=== PATIENT | male | born 1955 | race Caucasian/White ===

== ENCOUNTER → 2022-06-26 | Outpatient (CLI) | payer MEDICARE, BC, SELFPAY ==
[2022-06-26 11:26] LABS: Anion Gap 5 (5-15); BUN 25 mg/dL (7-18); BUN/Creat Ratio 27.9 RATIO (10-20); Chloride 110 mmol/L (98-107); Cholesterol 214 mg/dL (200); EST Glomerular Filtration Rate 90 mL/min (>60); Est Glom Filt Rate - Afr Amer 108 mL/min (>60); Glucose 91 mg/dL (74-106); High Density Lipoprotein 44 mg/dL; Potassium 4.2 mmol/L (3.5-5.1); Sodium Level 142 mmol/L (136-145); Triglycerides 93 mg/dL; Very Low Density Lipoprotein 19 mg/dL (5-40)
== END | disposition home or self-care (01) ==
LOC: PSN 11:47
PROVIDERS: Referring Provider Internal Medicine Cardiovascular Disease; Visit Provider Internal Medicine Cardiovascular Disease
DX: E78.5 Hyperlipidemia, unspecified (principal); I10 Essential (primary) hypertension; Z86.79 Personal history of other diseases of the circulatory system; R00.2 Palpitations
CPT/HCPCS: 36415; 80048; 80061; 84443; 93225; 93226

== ENCOUNTER → 2022-08-10 | Outpatient (CLI) | payer MEDICARE, BC, SELFPAY ==
--- NOTE | 2022-08-10 14:50 | ECHOD_ITS ---
Reason For Study: PALPS Procedure This was a 2D Doppler, Color Flow transthoracic echocardiogram. Definity deferred. Exam performed in department. Left Ventricle Normal LV size. Mild concentric left ventricular hypertrophy. The left ventricular ejection fraction is 65 %. Normal diastololic function. Right Ventricle Normal RV size. A moderator band is seen in the right ventricle. Atria The left atrium is mildly enlarged. Normal right atrium. Mitral Valve The mitral valve is structurally normal. No prolapse or stenosis seen. Tricuspid Valve Normal tricuspid valve. Aortic Valve Trivial aortic valve insufficiency. Pulmonic Valve The pulmonic valve is not well visualized. Pericardium/Pleural No pericardial effusion. MMode/2D Measurements & Calculations LVIDd: 5.0 cm IVSd: 1.1 cm Ao root diam: 3.3 cm LVIDs: 3.4 cm LVPWd: 1.5 cm FS: 31.2 % LAV(MOD-bp): 62.8 ml LVAd ap4: 32.9 cm2 SV(MOD-sp4): 62.9 ml LAV(MOD-bp) Indexed: 28.9 ml/m2 LVLd ap4: 7.6 cm LAV(MOD-sp2): 59.1 ml EDV(MOD-sp4): 113.1 ml LAV(MOD-sp4): 57.0 ml EDV(sp4-el): 120.7 ml LVAs ap4: 19.8 cm2 LVLs ap4: 6.6 cm ESV(MOD-sp4): 50.2 ml ESV(sp4-el): 50.4 ml EF(MOD-sp4): 55.6 % EF(sp4-el): 58.2 % SV(sp4-el): 70.3 ml LA dimension(2D): 4.4 cm LA A4 area: 20.3 cm2 RA A4 area: 15.9 cm2 Time Measurements MV dec time: 0.22 sec Doppler Measurements & Calculations MV E max chon: 53.7 cm/sec Lat Peak E' Chon: 8.9 cm/sec Med Peak E' Chon: 7.8 cm/sec MV A max chon: 54.2 cm/sec E/E' lat: 6.0 E/E' med: 6.9 MV E/A: 0.99 MV V2 max: 65.3 cm/sec Ao V2 max: 110.2 cm/sec MV max P.7 mmHg MV dec slope: 254.1 cm/sec2 Ao max P.9 mmHg MV V2 mean: 36.9 cm/sec Ao V2 mean: 77.1 cm/sec MV mean P.67 mmHg Ao mean P.8 mmHg MV V2 VTI: 25.0 cm Ao V2 VTI: 23.9 cm AV (velocity ratio): 0.91 LV V1 max: 100.1 cm/sec PA V2 max: 106.2 cm/sec LV V1 max P.0 mmHg PA V2 mean: 69.6 cm/sec LV V1 mean P.9 mmHg LV V1 mean: 63.9 cm/sec LV V1 VTI: 21.7 cm ECHO/Echo Complete Interpretation Summary Mild concentric left ventricular hypertrophy. The left ventricular ejection fraction is 65 %. The left atrium is mildly enlarged. Ordering Physician: Cherise Gomez Referring Physician: Cherise Gomez Performed By: Eliana Barnes RCS
== END | disposition home or self-care (01) ==
LOC: CVS 14:49
PROVIDERS: Referring Provider Internal Medicine Cardiovascular Disease; Visit Provider Internal Medicine Cardiovascular Disease
DX: R00.2 Palpitations (principal); Z86.79 Personal history of other diseases of the circulatory system
CPT/HCPCS: 93306

== ENCOUNTER → 2023-02-09 | Outpatient (CLI) | payer MEDICARE, BC, SELFPAY ==
[2023-02-09 11:06] LABS: AST(SGOT) 19 U/L (15-37); Alanine Aminotransfer ALT/SGPT 27 U/L (16-61); Albumin, Serum 3.7 g/dL (3.2-5.0); Alkaline Phosphatase 68 U/L (45-117); Bilirubin, Direct 0.12 mg/dL (0.00-0.30); Cholesterol 220 mg/dL (200); Globulin 3.3 g/dL (2.2-4.2); High Density Lipoprotein 49 mg/dL; Triglycerides 74 mg/dL; Very Low Density Lipoprotein 15 mg/dL (5-40)
== END | disposition home or self-care (01) ==
LOC: LAB 08:11
PROVIDERS: Referring Provider Internal Medicine Cardiovascular Disease; Visit Provider Internal Medicine Cardiovascular Disease
DX: E78.5 Hyperlipidemia, unspecified (principal)
CPT/HCPCS: 36415; 80061; 80076

== ENCOUNTER → 2023-07-16 | Outpatient (CLI) | payer MEDICARE, BC, SELFPAY ==
[2023-07-16 09:43] LABS: AST(SGOT) 21 U/L (15-37); Alanine Aminotransfer ALT/SGPT 25 U/L (16-61); Albumin, Serum 3.6 g/dL (3.2-5.0); Alkaline Phosphatase 81 U/L (45-117); Bilirubin, Direct 0.14 mg/dL (0.00-0.30); Cholesterol 154 mg/dL (200); Globulin 3.3 g/dL (2.2-4.2); High Density Lipoprotein 49 mg/dL; Protein, Total 6.9 g/dL (6.4-8.2); Triglycerides 70 mg/dL; Very Low Density Lipoprotein 14 mg/dL (5-40)
== END | disposition home or self-care (01) ==
LOC: LAB 08:06
PROVIDERS: Referring Provider Nurse Practitioner Family; Visit Provider Nurse Practitioner Family
DX: E78.5 Hyperlipidemia, unspecified (principal); I10 Essential (primary) hypertension
CPT/HCPCS: 36415; 80061; 80076

== ENCOUNTER → 2023-08-13 | Outpatient (CLI) | payer MEDICARE, BC, SELFPAY ==
--- NOTE | 2023-08-13 08:45 | MRI_ITS ---
EXAM: MR RIGHT UPPER EXTREMITY WITHOUT INTRAVENOUS CONTRAST, SHOULDER CLINICAL INDICATION: Pain TECHNIQUE: Multiplanar and multisequence MR images of the right shoulder without intravenous contrast. COMPARISON: June 04, 2023 right shoulder radiography FINDINGS: TENDONS: SUPRASPINATUS: There is a low-grade articular sided partial-thickness tearing involving the supraspinatus tendon at the level of the tendon footprint. INFRASPINATUS: Unremarkable. Intact. SUBSCAPULARIS: Full thickness partial width tear of the superior distal fibers of the subscapularis tendon with 9 mm of proximal retraction. TERES MINOR: Unremarkable. Intact. BICEPS BRACHII, LONG HEAD: Partial-thickness tearing involving a short segment of the intra-articular portion of the long biceps tendon although the tendon remains normal in position within the bicipital groove. LIGAMENTS: GLENOHUMERAL: Unremarkable. Intact. MUSCLES: Unremarkable. No rotator cuff muscle atrophy. FLUID: Small amount of fluid in the subacromial/subdeltoid bursa with synovitis is concerning for bursitis. At least small glenohumeral joint effusion with synovitis. CARTILAGE: Unremarkable. Articular cartilage intact. GLENOID LABRUM: Unremarkable. Intact, limited evaluation on non-arthrographic exam. BONES/JOINTS: Type II acromion with curved undersurface. No subacromial enthesophyte or os acromiale. Small benign cyst at the posterior superior humeral head. No fracture. No abnormal bone marrow signal. OTHER SOFT TISSUES: Unremarkable. No rotator interval edema. MRI/Upper Ext Joint Only(Routine) IMPRESSION: 1. Full thickness partial width tear of the superior distal fibers of the subscapularis tendon with 9 mm of proximal retraction. 2. Low-grade articular sided partial-thickness tearing involving the supraspinatus tendon. 3. Partial-thickness tearing involving a short segment of the intra-articular portion of the long biceps tendon although the tendon remains normal in position within the bicipital groove. 4. Small amount of fluid in the subacromial/subdeltoid bursa with synovitis is concerning for bursitis. Electronically Signed: Adan Chase MD at 23:22 EDT ,
== END | disposition home or self-care (01) ==
LOC: MRI 12:01
PROVIDERS: Referring Provider Orthopaedic Surgery; Visit Provider Orthopaedic Surgery
DX: M67.911 Unspecified disorder of synovium and tendon, right shoulder (principal); M75.81 Other shoulder lesions, right shoulder
CPT/HCPCS: 73221

== ENCOUNTER 2023-09-20 09:30 | Outpatient (RCR) | payer MEDICARE, BC, SELFPAY ==
--- NOTE | 2023-08-22 15:04 | HP.PTEVAL_ITS ---
Patient's Visit Information Visit Information Visit Information: MELANIE PEREZ is a 68 year old M referred to Physical Therapy by Dr. Cornelius Smith DO with a diagnosis of UNSPECIFIED ROTATOR CUFF TEAR OR RUPTURE OF RIGHT SHOULDER. Date of Evaluation: 08/22/23 Physical Therapist: Bao Jaramillo PT, Cert MDT, OCS Visit Plan Frequency: 2x /Week Duration: 4 Weeks Plan: PATIENT HAS PATIENT TORN RTC AND BICEP LONG HEAD PT INTERVENTIONS RTC/SCAPULAR STRENGTH ,POSTURAL EX'S, ROM ,ACTIVITY MODIFICATION ,AND US/ESTIM/CP FOR PAIN Subjective Subjective: This 68 y/o male presents to physical therapy with right shoulder pain with RTC tear. Patient developed right shoulder pain strain from cutting wood and lifting wood. Patient recalled 5 years ago lifting window arm went numb. Patient seen DR MRI showed Full thickness partial width tear of the superior distal fibers of then subscapularis tendon with 9 mm of proximal retraction.Low-grade articular sided partial-thickness tearing involving the supraspinatus tendon. Partial-thickness tearing involving a short segment of the intra-articular portion of the long biceps tendon although the tendon remains normal in position within the bicipital groove. Dr did cortisone injection did help . Pain located at lateral deltoid ache and sharp pain.Tried medication did not help.Denies paresthesia/tingling. Patient has difficulty sleeping . Patient has pain with all ADL's and function lifting OH and function and reaching behind back. Patient and DR will try conservative treatment rather than surgery. Patient goals to get stronger and avoid surgery. SOCAIL: VOCATION: retired Pain Right Shoulder: Pain Intensity (Out of 10): 8 Pain Intensity Range: 10 Objective Objective: POSTURE: rounded shoulder head forward ,type ll clavicle NEURO: denies paresthesia/tingling AROM: shoulder flexion 140 degrees pain ,abduction 120 degrees pain ,ER 80 degrees pain PROM: WFL flexion /abduction 160 degrees MMT: ( [employer] ) infraspinatus 15.3 ,supraspinatus 15.1, subscapularis 15.3 , deltoid 16.5 CAPSULAR RESTRICTION: WFL Mild substitution with elevation with shoulder flexion /abduction with 1:1 G-H joint scapular rhythm Special Tests R Shoulder External Rotation Lag Test - RC Tear: Negative R Shoulder Supine Impingement Test - RC Tear: Positive R Shoulder Lift Off Test - Subscapular Tear: Positive R Shoulder Drop Sign - IS Test: Negative R Shoulder Empty Can - SS: Positive R Shoulder Belly Press - SupScap: Negative R Shoulder Neer - Impingement: Positive R Shoulder Gutierrez Ezio - Impingement: Positive R Shoulder Biceps Load Test - Labrum: Positive R Shoulder Speeds Test - Labrum/Biceps: Positive Balance/Special Test Scores Quick DASH Score: 45.4525 Goals Goal 1:: Patient to be I with HEP for shoulder Goal Time Frame: 4-6 Weeks Goal 2:: Patient to demonstrate 50% improvement with to improve function and ADLS Goal Time Frame: 4-6 Weeks Goal 3:: Patient to improve peak force RTC and deltoid by 5-10 # strength to improve ADLS Goal Time Frame: 4-6 Weeks Goal 4:: Patient improve AROM shoulder flexion/abduction by 10-15 degrees to improve ADL''s OH activities Goal Time Frame: 4-6 Weeks Goal 5:: Patient improve to improve back oswestry score by 5 points to improve QOL Goal Time Frame: 4-6 Weeks Rehabilitation Potential Physical Therapy Diagnosis: This patient has RCT and long head tear with pain ,weakness and ROM loss affects thus benefit from skilled PT wants conservative treatment Rehabilitation Potential: Good Anticipated Interventions Patient/Client Instruction: Educate patient on: Condition and Plan of Care For the Purpose of:: To decrease pain, To increase ROM, To improve muscle performance and motor function, To improve ability to perform ADL's, To increase tolerance to activity/condition/position, To improve ability of physical actions for home/community/work/leisure, To improve health of tissue, To prevent re- injury and To improve tolerance to ADL's Therapeutic Exercise to Include: Strength training, Postural training, Flex ibilty training, Passive ROM, Active ROM and Scapular Strength/Stabilization Comment: RTC For the Purpose of:: To decrease pain, To increase ROM, To improve nutrient delivery to tissue, To increase oxygenation perfusion, To improve health of tissue, To decrease soft tissue restriction and To increase flexibility/ROM Text: Thank you for the opportunity to evaluate your patient. For Medicare and Medicare HMO plans, please review the plan of care and approve it. It will need to be FAXED BACK to us at [phone] for Medicare purposes. For Medicare only, by signing this I certify the plan of care. Please let me know if there are questions or concerns regarding this plan of care. Physician Signature: Date:
--- NOTE | 2023-09-20 10:22 | HP.PTDCSUM ---
Discharge Summary D/C summary: It has been my pleasure to treat MELANIE PEREZ referred by Dr. Cornelius Smith DO, with the diagnosis of UNSPECIFIED ROTATOR CUFF TEAR OR RUPTURE OF RIGHT SHOULDER for a total of 10 visit(s). Discharge Date: Please see the following information for a summary of their discharge status. Subjective Subjective: Patient reports ding alot better Pain Right Shoulder: Pain Intensity (Out of 10): 0 Overall Improvement % Improvement: 75 Objective Objective/Function: AROM: shoulder flexion 160 degrees ,abduction 160 degrees ,ER 90 ,IR L2 MMT: ( [employer]) infraspinatus 17.2 ,subscap 19.9 .supraspinatus , 18,2 met goals Goals Goal 1:: Patient to be I with HEP for shoulder Goal Progress: Goal Met Goal 2:: Patient to demonstrate 50% improvement with to improve function and ADLS Goal Progress: Goal Met Goal 3:: Patient to improve peak force RTC and deltoid by 5-10 # strength to improve ADLS Goal Progress: Goal Met Goal 4:: Patient improve AROM shoulder flexion/abduction by 10-15 degrees to improve ADL''s OH activities Goal Progress: Goal Met Goal 5:: Patient improve to improve back oswestry score by 5 points to improve QOL Goal Progress: Goal Met Plan Plan: D/C D/C Information d/c sentence: If there are questions or concerns regarding this patient's physical therapy, please feel free to call me at [phone]. Thank you for the referral of this patient. Sincerely, Bao Jaramillo, PT, Cert MDT, OCS Balance/Gait/Functional tests Balance/Special Test Scores Quick DASH Score: 4.5450 Improvement % Improvement: 75
== END 2023-09-20 10:58 | disposition home or self-care (01) ==
LOC: PT 09:30
PROVIDERS: Referring Provider Orthopaedic Surgery; Visit Provider Orthopaedic Surgery
DX: M75.101 Unspecified rotator cuff tear or rupture of right shoulder, not specified as traumatic (principal)
CPT/HCPCS: 97110; 97162; 97530

== ENCOUNTER → 2023-10-01 | Outpatient (CLI) | payer MEDICARE, BC, SELFPAY ==
[2023-10-01 12:21] LABS: Absolute Lymphocyte Count 1.31 X10^3/uL (0.83-4.51); Absolute Neutrophil Count 4.4 X10^3/uL (2.0-7.7); Basophil# 0.02 X10^3/uL; Basophil% 0.3 % (0-1); Eosinophils% 1.5 % (0-5); Hematocrit 48.3 % (40-54); Hemoglobin 15.5 g/dL (13.0-16.5); Lymphocyte # 1.31 X10^3/ul (0.83-4.51); Lymphocyte % 20.2 % (19-41); Mean Corp Hgb Conc 32.1 g/dL (32-36); Mean Corpuscular Hgb 29.5 pg (27.0-32.0); Mean Corpuscular Volume 91.8 fL (80-94); Mean Platelet Vol. 10.5 fl (6.2-12.0); Monocyte# 0.61 X10^3/uL; Monocyte% 9.4 % (0-10); NRBC Flagged by Analyzer 0 % (0-5); Neutrophil # 4.41 X10^3/uL (2.7-7.7); Platelet Count 209 K/mm3 (150-450); RBC Distribution Width CV 13.7 % (11.6-14.6); RBC Distribution Width SD 46.7 fl (35.1-43.9); Red Blood Count 5.26 M/mm3 (4.6-6.2); White Blood Count 6.5 K/mm3 (4.4-11.0)
[2023-10-01 12:44] LABS: Anion Gap 5 (5-15); BUN 29 mg/dL (7-18); BUN/Creat Ratio 33.4 RATIO (10-20); Calcium,Total 9.3 mg/dL (8.5-10.1); Chloride 108 mmol/L (98-107); Creatinine, Serum 0.87 mg/dL (0.70-1.30); EST Glomerular Filtration Rate 93 mL/min (>60); Est Glom Filt Rate - Afr Amer 112 mL/min (>60); Glucose 101 mg/dL (74-106); Potassium 4.1 mmol/L (3.5-5.1); Sodium Level 139 mmol/L (136-145)
== END | disposition home or self-care (01) ==
LOC: BIMLAB 11:00
PROVIDERS: PCP Internal Medicine; Referring Provider Internal Medicine; Visit Provider Internal Medicine
DX: I10 Essential (primary) hypertension (principal)
CPT/HCPCS: 36415; 80048; 85025

== ENCOUNTER → 2023-10-12 | Outpatient (CLI) | payer MEDICARE, BC, SELFPAY ==
--- NOTE | 2023-10-12 12:15 | US_ITS ---
INDICATION: scrotal swelling EXAMINATION: Ultrasound US Scrotum (Contents) TECHNIQUE: Realtime ultrasound of the testicles was performed with grayscale, Color Doppler and spectral Doppler analysis. COMPARISON: No relevant prior comparison study available FINDINGS: RIGHT: TESTIS: 4.7 x 3.4 x 2.7 cm. Normal in size and echotexture, without focal lesion. COLOR DOPPLER: Normal arterial flow present in the testicle with monophasic waveforms. EPIDIDYMIS: The right epididymis measures about 1.6 cm. There are 2 cysts in the right epididymal head measuring about 1.8 cm and 0.9 cm. [Normal color Doppler flow pattern in the epididymis. HYDROCELE: Mild right hydrocele. VARICOCELE: None. LEFT: TESTIS: 5.4 x 2.9 x 2.8 cm. Normal in size and echotexture, without focal lesion. COLOR DOPPLER: Normal arterial flow present in the testicle with monophasic waveforms. EPIDIDYMIS: The left lateral isthmus measures about 1.6 cm. There are 2 cysts in the left epididymis measuring about 1.8 cm and 1.6 cm. [Normal color Doppler flow pattern in the epididymis. HYDROCELE: Large left hydrocele. VARICOCELE: None. US/Testicular with Arterial Flow IMPRESSION: 1. No evidence of testicular torsion at the time this examination was performed. 2. Bilateral epididymal cysts. 3. Large left hydrocele. Electronically Signed: Dustin Wang MD at 15:24 EDT ,
== END | disposition home or self-care (01) ==
LOC: US 12:14
PROVIDERS: Referring Provider Internal Medicine; Visit Provider Internal Medicine
DX: N50.89 Other specified disorders of the male genital organs (principal)
CPT/HCPCS: 76870; 93976

== ENCOUNTER → 2025-01-19 | Outpatient (CLI) | payer MEDICARE, BC, SELFPAY ==
[2025-01-19 11:14] LABS: Hematocrit 42.4 % (40-54); Hemoglobin 13.8 g/dL (13.0-16.5); Mean Corp Hgb Conc 32.5 g/dL (32-36); Mean Corpuscular Volume 89.3 fL (80-94); Mean Platelet Vol. 9.9 fl (6.2-12.0); Platelet Count 199 K/mm3 (150-450); RBC Distribution Width CV 14.7 % (11.6-14.6); RBC Distribution Width SD 48.1 fl (35.1-43.9); Red Blood Count 4.75 M/mm3 (4.6-6.2); White Blood Count 7.7 K/mm3 (4.4-11.0)
[2025-01-19 11:55] LABS: Anion Gap 11 (5-15); BUN 21 mg/dL (4-19); BUN/Creat Ratio 26.3 RATIO (10-20); Calcium,Total 8.9 mg/dL (7.6-11.0); Carbon Dioxide 22.4 mmol/L (21.0-32.0); Chloride 106 mmol/L (98-108); Glucose 115 mg/dL (70-99); PSA,Total - Annual Screen 1.74 ng/mL (0.02-4.00); Potassium 3.8 mmol/L (3.3-5.1)
== END | disposition home or self-care (01) ==
LOC: LAB 10:54
PROVIDERS: PCP Internal Medicine; Referring Provider Urology; Visit Provider Urology
DX: Z01.812 Encounter for preprocedural laboratory examination (principal); Z12.5 Encounter for screening for malignant neoplasm of prostate
CPT/HCPCS: 36415; 80048; 84153; 85027; G0103

== ENCOUNTER → 2025-01-22 | Outpatient (CLI) | payer MEDICARE, BC, SELFPAY ==
--- NOTE | 2025-01-22 10:39 | EKG12_ITS ---
Test Reason : PREOP Blood Pressure : */* mmHG Vent. Rate : 63 BPM Atrial Rate : 63 BPM P-R Int : 154 ms QRS Dur : 114 ms QT Int : 420 ms P-R-T Axes : 36 -52 8 degrees QTcB Int : 429 ms Normal sinus rhythm Left anterior fascicular block Abnormal ECG Confirmed by MANE PAYAN, GURINDER ([id number]), associate entertainment editor JOSE BRYSON ([id number]) on 01/22/2025 1:18:08 PM Referred By: Amado Schrader Confirmed By: GURINDER GILLIAM MD
--- NOTE | 2025-01-22 10:39 | EKG12_ITS ---
Test Reason : PREOP Blood Pressure : */* mmHG Vent. Rate : 63 BPM Atrial Rate : 63 BPM P-R Int : 154 ms QRS Dur : 114 ms QT Int : 420 ms P-R-T Axes : 36 -52 8 degrees QTcB Int : 429 ms Normal sinus rhythm Left anterior fascicular block Abnormal ECG Confirmed by MANE PAYAN, GURINDER ([id number]), editor house organ JOSE BRYSON ([id number]) on 01/22/2025 1:18:08 PM Referred By: Amado Schrader Confirmed By: GURINDER GILLIAM MD
== END | disposition home or self-care (01) ==
PROVIDERS: PCP Internal Medicine; Referring Provider Urology; Visit Provider Urology
DX: Z01.810 Encounter for preprocedural cardiovascular examination (principal)
CPT/HCPCS: 93005